=== PATIENT | female | born 1980 | race Caucasian/White ===

== ENCOUNTER 2016-10-27 19:21 | Emergency (ER) | payer OTHER ==
[2016-10-27 19:45] VITALS: BP 121/77; PULSE 83; RESP 18; TEMP 98.2; O2SAT 100
--- NOTE | 2016-10-27 21:40 | ED PDOC ---
HPI: Female Pain Time Seen by Provider: 10/27/16 21:21 Chief Complaint (Nursing): Female Genitourinary Chief Complaint (Provider): tampon History Per: Patient History/Exam Limitations: no limitations Associated Symptoms: denies: Fever, Chills, Nausea, Vomiting, Diarrhea, Loss Of Appetite, Back Pain, Chest Pain, Constipation Additional Complaint(s): 36yo F in Ed for eval of ? lodged tampon-occurred yesterday doens't remember if she took it out. on pain, odors , fver chills, now with brown spotting. no back pain. Past Medical History Reviewed: Historical Data, Nursing Documentation, Vital Signs Vital Signs: Last Vital Signs Temp 98.2 F 10/27/16 19:42 Pulse 83 10/27/16 19:42 Resp 18 10/27/16 19:42 BP 121/77 10/27/16 19:42 Pulse Ox 100 10/27/16 19:42 - Medical History PMH: No Chronic Diseases - Family History Family History: States: No Known Family Hx - Allergies Allergies/Adverse Reactions: Allergies Allergy/AdvReac Type Severity Reaction Status Date / Time No Known Allergies Allergy Verified 08/19/14 08:14 Review of Systems ROS Statement: Except As Marked, All Systems Reviewed And Found Negative Constitutional: Negative for: Fever, Chills Genitourinary Female: Positive for: Vaginal Bleeding Musculoskeletal: Negative for: Back Pain Physical Exam - Reviewed Nursing Documentation Reviewed: Yes Vital Signs Reviewed: Yes - Physical Exam Appears: Positive for: Well, Non-toxic, No Acute Distress Head Exam: Positive for: ATRAUMATIC, NORMAL INSPECTION, NORMOCEPHALIC Skin: Positive for: Normal Color, Warm, DRY Cardiovascular/Chest: Positive for: Regular Rate, Rhythm Respiratory: Positive for: CNT, Normal Breath Sounds Gastrointestinal/Abdominal: Positive for: Normal Exam, Bowel Sounds, Soft. Negative for: Tenderness Pelvic Exam: Positive for: External Exam Normal, Speculum Exam Normal (no FB noted), Bimanual Exam Normal, No Cerv. Motion Tender, No Masses, Blood (old). Negative for: Active Bleeding, Cervicitis, Discharge, Lesions, Mass, Tender W/ Cervical Motion, Tender Adnexa, Tender Uterus, Ulcers Back: Positive for: Normal Inspection Extremity: Positive for: Normal ROM Neurologic/Psych: Positive for: Alert, Oriented - ECG O2 Sat by Pulse Oximetry: 100 Medical Decision Making Medical Decision Making: no FB noted in vault of vagina pt advised to f.u with obgyn Disposition - Clinical Impression Clinical Impression: Normal vaginal exam - Patient ED Disposition Is Patient to be Admitted: No Counseled Patient/Family Regarding: Studies Performed, Diagnosis, Need For Followup - Disposition Disposition: Routine/Home Disposition Time: 21:40 Condition: STABLE Instructions: Vaginal Foreign Body (ED)
== END 2016-10-27 21:40 | disposition home or self-care (01) ==
LOC: H.ER 19:21
DX: Z03.89 Encounter for observation for other suspected diseases and conditions ruled out (principal)